=== PATIENT | male | born 1960 ===

== ENCOUNTER 2019-06-21 22:17 | Emergency (ER) | payer OTHER ==
[~2019-06-21] VITALS: Ht 182.9 cm; Wt 87.1 kg
[~2019-06-21 22:17] MED LIST: ASA81 MG; COZAAR100 MG; COZAAR50 MG PO; ORPH100T PO
[2019-06-21] MEDS ORDERED: TOPROL XL100 M1 PO (22:40)
== END 2019-06-21 23:25 | disposition home or self-care (01) ==
LOC: ER 22:17
DX: K60.0 Acute anal fissure (principal)

== ENCOUNTER 2020-10-03 16:11 | Inpatient (IN) | payer OTHER ==
[~2020-10-03] VITALS: Ht 182.9 cm; Wt 84.8 kg
[~2020-10-03 16:11] MED LIST changes: +TOPROL XL100 M1 PO
[2020-10-09] MEDS ORDERED: CARVEDILOL25 MG PO (09:14)
[2020-10-09] MEDS ORDERED: SPIRONOLACTONE25 MG PO (09:15)
[2020-10-09] MEDS ORDERED: HYDRALAZINE HCL50 MG PO (09:15)
[2020-10-09] MEDS ORDERED: DOXAZOSIN MESYLA4 MG PO (09:16)
[2020-10-09] MEDS ORDERED: LIPITOR20 MG PO (09:17)
[2020-10-09] MEDS ORDERED: ADALAT CC30 MG PO (09:17)
== END 2020-10-09 09:56 | disposition home or self-care (01) | DRG 305 ==
LOC: ER 16:11 → ICU-2 20:50 → ICU 10-06 14:10 → MEDJ 10-08 19:59
PROVIDERS: ADMIT Internal Medicine; ATTEND Internal Medicine
PROC: 3E0F7SF Introduction of Other Gas into Respiratory Tract, Via Natural or Artificial Opening (ICD-10-PCS; principal; 2020-10-03)
PROC: 4A12X4Z Monitoring of Cardiac Electrical Activity, External Approach (ICD-10-PCS; 2020-10-03)
PROC: BW2FZZZ Computerized Tomography (CT Scan) of Neck (ICD-10-PCS; 2020-10-03)
PROC: BW25ZZZ Computerized Tomography (CT Scan) of Chest, Abdomen and Pelvis (ICD-10-PCS; 2020-10-03)
PROC: B24BZZZ Ultrasonography of Heart with Aorta (ICD-10-PCS; 2020-10-04)
PROC: BT43ZZZ Ultrasonography of Bilateral Kidneys (ICD-10-PCS; 2020-10-05)
DX: I16.9 Hypertensive crisis, unspecified (principal); N17.8 Other acute kidney failure; Q61.3 Polycystic kidney, unspecified; N18.9 Chronic kidney disease, unspecified; M54.2 Cervicalgia